=== PATIENT | female | born 1935 | race Caucasian/White ===

== ENCOUNTER 2016-12-25 01:51 | Emergency (ER) | payer MEDICARE, BC ==
[2016-12-25] MEDS ORDERED: Aspirin 81 MG Tab.Chew PO ONE (02:10)
[2016-12-25] MEDS ORDERED: Sodium Chloride 0.9% 1,000 ML IV SCH (02:15)
[2016-12-25] MEDS ORDERED: Isosorbide Mononitrate 30 MG Tab.ER PO ONE (02:16)
[2016-12-25] MEDS: Nitroglycerin 0.4 MG Tab.SL SL PRN ×3 (02:21→02:31)
[2016-12-25] MEDS ORDERED: Potassium Chloride 10% 20 MEQ/15 ML Soln 15 ML UD Cup PO ONE (03:15)
[2016-12-25 06:09] VITALS: BP 126/70
--- NOTE | 2016-12-26 02:44 | ER ---
DATE SEEN: 12/25/2016 CHIEF COMPLAINT: Chest pain, nicotine abuse. HISTORY OF PRESENT ILLNESS: This is an 81-year-old at 10:30 p.m. last night 12/25/2016 had neck and jaw aches and also mild occipital headache 3 to 6/10. Chest felt heavy. She did not have nitroglycerin and she felt her pulse was occasionally hard and lost a beat (skipped beat). I feel like I have just finished seeing a dentist, because the pressure discomfort in a tooth. She called 911 at 0155 hours and was came by ambulance to the hospital for further evaluation. In addition to that she has a history of intermittent claudication in the legs-nocturnal while she is lying in bed. Otherwise, she can walk a mile before she has cramping in her legs. She has chronic cough and shortness of breath secondary to half a pack cigarette smoking, a total of 33 pack years. She has not been walking as much lately, because her little dog is blind and has Alzheimer's and needs to be put down and she does not have heart to do that. She notes her teeth are okay. She has never had any compromise in vision or temporal arteritis. She denies neck stiffness, head trauma, compromise in her vision, blurred vision, diplopia, neck pain, carotid artery stenosis, previous chest pain, myocardial infarction, CVA, or diabetes. She does have hypertension. PAST MEDICAL HISTORY/PREVIOUS SURGERY: Appendectomy, exploratory laparotomy, cholecystectomy and pilonidal cyst drainage. SOCIAL HISTORY: She is a [id number] smoker. Regarding her COPD, she has been pressing her lips when she expires for some time, but apparently was unaware of it. FAMILY HISTORY: Significant hypothyroidism. Mother of breast cancer age 31. Father of multiple myeloma age 73. Brother of prostate cancer age 81. Has a sister who is alive and reasonably healthy. ALLERGIES: None. MEDICATIONS: 1. Fosamax weekly. 2. Aspirin daily. 3. Levothyroxine daily. 4. Atenolol b.i.d. PHYSICAL EXAMINATION: VITAL SIGNS: Her arrival blood pressure was 111/95. Her departure blood pressure was 111/71. Heart rate 62 regular, respirations 18, and oxygen saturation 97% on room air. As she has been in the ER and had 30 mg of Imdur, blood pressure is still 111/95, respirations 20, and oxygen saturation 97. GENERAL: This is an overweight woman who is in mild distress. HEENT: Has a very noticeable expiratory respirations with pursing her lips. Moderate gross feet and facial folds. Pharynx without abnormality, but smoking odor noted. NECK: No thyromegaly. No cervical adenopathy. No bruits in the neck. LUNGS: Clear to auscultation. She has musical rhonchi and scattered rales. No intercostal retraction. No accessory muscle use. No chest wall pain. HEART: S1 and S2. No irregular rate and rhythm. No murmur. ABDOMEN: Soft. No abdominal discomfort. No CVA percussion tenderness. EXTREMITIES: Lower extremities without edema. Deep tendon reflexes 1+ in the upper extremities and hypoactive lower extremities. NEUROLOGIC: Cranial nerves 2 through 12 intact. Oriented x3. Gait intact. Strength intact. No pronator drift. IMAGING STUDIES: EKG x2 half hour apart was normal with sinus rhythm. Troponin x2 two hours apart are normal. LABORATORY DATA: Hemoglobin 14.2, white count 8300, PMNs 51, lymphocytes elevated at 38, monos 6, and platelets 246. D-dimer elevated at 402, but for age not considered elevated. Sodium is 140 and potassium 3.4. Glucose 121, BUN and creatinine ratio 26 reflecting mild dehydration. Troponin less than 0.01 x2. ASSESSMENT: 1. Coronary artery disease. 2. Stable angina. 3. Significant chronic obstructive lung disease without accessary muscle respirations, but pursing of her lips when exploring. 4. Chest x-ray, mild fibrosis. Occasional pneumatocele noted. 5. Hypokalemia. Dose of potassium 40 mEq orally given to the patient. 6. Monocytosis, etiology is indeterminate. Father had multiple myeloma. I doubt this is early expression of multiple myeloma, but it is possible. 7. Overweight. 8. Smoker. PLAN: 1. Potassium 20 mEq daily. 2. Imdur 30 mg daily. 3. Nicorette lozenge 4 mg 1 to 2 every 2 hours. No more than 20 per day. 4. NicoDerm patch 21 mcg. 5. Follow up with a doctor in a week, earlier if worse. /[id number] LS/MODL
--- NOTE | 2016-12-28 11:26 | CR ---
INDICATION: Chest pain. CHEST, AP UPRIGHT: Scoliotic curvature thoracic spine to the left. 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 Hyperinflation consistent with COPD. No infiltrates, effusions , or masses identified. The heart is normal in size. I do not see significant failure identified at this time. MTDD
== END 2016-12-25 06:15 | disposition home or self-care (01) ==
LOC: FB.ED 01:51
DX: I25.119 Atherosclerotic heart disease of native coronary artery with unspecified angina pectoris (principal); J84.10 Pulmonary fibrosis, unspecified; E66.3 Overweight; D72.821 Monocytosis (symptomatic); J44.9 Chronic obstructive pulmonary disease, unspecified; Z98.890 Other specified postprocedural states; Z87.891 Personal history of nicotine dependence; Z90.49 Acquired absence of other specified parts of digestive tract
CPT/HCPCS: 36415; 71010; 80053; 84484; 85025; 85379; 85651; 86140; 93005; 96365; 96366; 99285; A9270; J7040; 99283